=== PATIENT | male | born 1985 | race Caucasian/White ===

== ENCOUNTER 2019-08-02 19:57 | Emergency (ER) | payer MEDICAID ==
[~2019-08-02] VITALS: Ht 172.7 cm; Wt 79.5 kg
--- NOTE | 2019-08-02 20:10 | NUR ---
FIELD MACHINIST: EKG DONE IN TRIAGE
--- NOTE | 2019-08-02 20:29 | NUR ---
Patient presents to ER c/o gastric reflux, WAGNER, fatigue, and occasional cough. Patient states he was sick with the same symptoms minus the gastric reflux approx 1 month ago. He said it went away eventually. Now he is having the same symptoms but with the reflux. Patient states he is unable to walk very far without getting fatigued. Patient is in NAD. Respirations even and unlabored.
[2019-08-02 21:42] VITALS: BP 104/61
[2019-08-02 22:09] LABS: RAPID INFLUENZA A Negative (Negative); RAPID INFLUENZA B Negative (Negative)
== END 2019-08-02 22:46 | disposition home or self-care (01) ==
LOC: ED 20:42
DX: B34.9 Viral infection, unspecified (principal); J20.8 Acute bronchitis due to other specified organisms; R00.0 Tachycardia, unspecified; F17.200 Nicotine dependence, unspecified, uncomplicated
CPT/HCPCS: 71045; 87400; 93005; 99285